=== PATIENT | female | born 1960 | race Caucasian/White ===

== ENCOUNTER 2018-10-01 13:04 | Emergency (ER) | payer OTHER ==
[2018-10-01] MEDS: LIDOCAINE 1% (MDV) 20 ML INJ SC (14:30)
[2018-10-01] MEDS: BACITRACIN 0.9 GM OINT TOP ×2 (14:32→14:33)
[2018-10-01] MEDS: LIDOCAINE 4% CR TOP ×2 (14:33)
[2018-10-01] MEDS: IBUPROFEN 800 MG TAB PO (16:32)
[2018-10-01] MEDS ORDERED: ACETAMINOPHEN 325 MG TAB (17:08)
== END 2018-10-01 17:10 | disposition home or self-care (01) ==
LOC: FTE 13:04
DX: S61.211A Laceration without foreign body of left index finger without damage to nail, initial encounter (principal); W26.0XXA Contact with knife, initial encounter; Y92.9 Unspecified place or not applicable
CPT/HCPCS: 12001; 73140; 99283-25